=== PATIENT | female | born 1990 | race Caucasian/White ===

== ENCOUNTER 2024-05-02 03:47 | Day surgery (SDC) | payer BC ==
[2024-05-02 04:36] VITALS: BMI 37.5
[2024-05-02 04:47] LABS: Fetal Membranes Rupture No Membranes Rupture (No Rupture)
== END 2024-05-02 05:17 | disposition home or self-care (01) ==
LOC: CSHLD/OP 03:47
PROVIDERS: ATTEND Student in an Organized Health Care Education/Training Program
DX: O23.593 Infection of other part of genital tract in pregnancy, third trimester (principal); N89.8 Other specified noninflammatory disorders of vagina; Z3A.37 37 weeks gestation of pregnancy
CPT/HCPCS: 84112; 99283